=== PATIENT | female | born 1930 | race Hispanic/Latino ===

== ENCOUNTER 2016-07-04 02:36 | Observation (INO) | payer MEDICARE ==
[2016-07-04 02:44] VITALS: BMI 32.5
[2016-07-04] MEDS ORDERED: Nitroglycerin 2% Ointment Foilpak UD TOP STA (02:58)
--- NOTE | 2016-07-04 03:14 | ED PDOC ---
Arrival/HPI - General Chief Complaint: Chest Pain Time Seen by Provider: 07/04/16 02:46 Historian: Patient - History of Present Illness Narrative History of Present Illness (Text): 07/04/16 03:12 Suma Hutchinson is a 86 year old female, whose past medical history includes hypertension, glaucoma, and overactive bladder, presents to the emergency department complaining of right sided chest pain under right breast area since yesterday morning. Denies any difficulty breathing. States she took Aspirin for the pain prior to arrival for appreciable relief. States pain is currently improving. Denies any fever, chills, headache, dizziness, nausea, vomiting, diarrhea, urinary symptoms, back pain, or any other complaints at this time. Time/Duration: 24 hours Symptom Onset: Gradual Symptom Course: Unchanged Severity Level: Mild Activities at Onset: Light Past Medical History - Provider Review Nursing Documentation Reviewed: Yes - Infectious Disease Hx of Infectious Diseases: None - Reproductive Menopause: Yes - Cardiac Hx Hypertension: Yes Hx Pacemaker: No - Neurological Hx Paralysis: No - HEENT Hx Cataracts: Yes Hx Glaucoma: Yes - Hematological/Oncological Hx Blood Transfusions: No Hx Blood Transfusion Reaction: No - Musculoskeletal/Rheumatological Hx Musculoskeletal Disorders: Yes - Genitourinary/Gynecological Other/Comment: Overactive bladder - Psychiatric Hx Substance Use: No - Surgical History Hx Breast Biopsy: Yes (R) Hx Cataract Extraction: Yes Hx Orthopedic Surgery: Yes ([facility] knee surgery) Other/Comment: Hammer toe surgery on both feet. "Surgery for glaucoma" - Anesthesia Hx Anesthesia: Yes Hx Anesthesia Reactions: No Hx Malignant Hyperthermia: No Family/Social History - Physician Review Nursing Documentation Reviewed: Yes Family/Social History: No Known Family HX Smoking Status: Never Smoked Hx Alcohol Use: No Hx Substance Use: No Allergies/Home Meds Allergies/Adverse Reactions: Allergies shellfish derived Allergy (Verified 07/04/16 02:43) RASH Home Medications: Home Meds Medication Instructions Recorded Confirmed Cholecalciferol [Vitamin D 1000 IU] 3,000 iu PO DAILY 07/04/16 07/04/16 Cyanocobalamin [Vitamin B12 1000 1 vial IM Q30D 07/04/16 07/04/16 mcg/ml Inj] Docusate Sodium [Stool Softener] 1 tab PO DAILY 07/04/16 07/04/16 Levothyroxine [Synthroid] 1 tab PO DAILY 07/04/16 07/04/16 Lisinopril [Zestril] 1 tab PO DAILY 07/04/16 07/04/16 Pravastatin Sodium [Pravachol] 1 tab PO DAILY 07/04/16 07/04/16 Solifenacin Succinate [Vesicare] 1 tab PO DAILY 07/04/16 07/04/16 Timolol 0.5% Ophth [Timoptic 0.5% 1 drop BOTHEYES BID 07/04/16 07/04/16 Ophth Soln] Ubidecarenone [Coq-10] 1 cap PO DAILY 07/04/16 07/04/16 Review of Systems - Physician Review All systems were reviewed & negative as marked: Yes - Review of Systems Constitutional: Normal. absent: Fatigue, Fevers Respiratory: Normal. absent: SOB, Cough, Sputum Cardiovascular: Chest Pain (right sided chest pain ). absent: Palpitations Gastrointestinal: Normal. absent: Abdominal Pain, Diarrhea, Nausea, Vomiting Genitourinary Female: Normal. absent: Dysuria, Frequency Neurological: Normal. absent: Headache Psychiatric: Normal Physical Exam Vital Signs Reviewed: Yes Vital Signs Temp Pulse Resp BP Pulse Ox 07/04/16 04:14 61 18 142/73 97 07/04/16 03:20 62 16 172/70 H 98 07/04/16 02:57 98.1 F 60 16 197/86 H 98 Temperature: Afebrile Blood Pressure: Hypertensive Pulse: Regular Respiratory Rate: Normal Appearance: Positive for: Well-Appearing, Non-Toxic, Comfortable Pain Distress: None Mental Status: Positive for: Alert and Oriented X 3 - Systems Exam Head: Present: Atraumatic, Normocephalic Pupils: Present: PERRL Extroacular Muscles: Present: EOMI Conjunctiva: Present: Normal Mouth: Present: Moist Mucous Membranes Respiratory/Chest: Present: Clear to Auscultation, Good Air Exchange. No: Respiratory Distress, Accessory Muscle Use Cardiovascular: Present: Regular Rate and Rhythm, Normal S1, S2. No: Murmurs Abdomen: Present: Normal Bowel Sounds. No: Tenderness, Distention, Peritoneal Signs Upper Extremity: Present: Normal Inspection. No: Cyanosis, Edema Lower Extremity: Present: Normal Inspection. No: Edema Neurological: Present: GCS=15, CN II-XII Intact, Speech Normal, Motor Func Grossly Intact, Normal Sensory Function Skin: Present: Warm, Dry, Normal Color. No: Rashes Psychiatric: Present: Alert, Oriented x 3, Normal Insight, Normal Concentration Medical Decision Making ED Course and Treatment: 07/04/16 03:15 Impression: A 86 year old female who presents to the emergency department complaining of right sided chest pain since yesterday evening. Plan: -- EKG -- Labs, cardiac enzymes -- Chest X-ray -- Nitroglycerin -- Reassess and disposition Progress Notes: 07/04/16 03:16 EKG interpreted by me: Sinus bradycardia @ 58 bpm. 1st degree AV block. no acute changes. Chest X-ray interpreted by me: No acute processes. 07/04/16 04:55 Case discussed in detail with Dr. Beyer who is aware and agrees with the plan to observe patient in telemetry for chest pain. Accepts patient under her service with on cardiology consult. - Lab Interpretations Lab Results: 07/04/16 03:15 07/04/16 03:15 Lab Results 07/04/16 03:15: WBC 9.8, RBC 4.04, Hgb 11.7 L, Hct 35.6 L, MCV 88.1, MCH 29.0, MCHC 32.9, RDW 13.8, Plt Count 250, MPV 10.7 07/04/16 03:15: Sodium 139, Potassium 4.0, Chloride 104, Carbon Dioxide 25, Anion Gap 14, BUN 20, Creatinine 1.0, Est GFR ( Amer) > 60, Est GFR (Non- Af Amer) 52, Random Glucose 118 H, Calcium 9.5, Total Bilirubin 0.8, AST 25, ALT 29, Alkaline Phosphatase 83, Lactate Dehydrogenase 447, Total Creatine Kinase 123, Troponin I < 0.01, Total Protein 7.2, Albumin 3.9, Globulin 3.3, Albumin/Globulin Ratio 1.2 07/04/16 03:15: PT 10.5, INR 0.97, APTT 29.3 - RAD Interpretation Radiology Orders: 07/04/16 02:57 CHEST PORTABLE [RAD] Stat - Medication Orders Current Medication Orders: Discontinued Medications Nitroglycerin (Nitro-Bid 2% Oint) 1 ea TOP ONCE STA Stop: 07/04/16 02:59 Last Admin: 07/04/16 03:07 Dose: 1 ea - Scribe Statement The provider has reviewed the documentation as recorded by the Aureliano Blood Provider Attestation: All medical record entries made by the Melanyibjocelyn were at my direction and personally dictated by me. I have reviewed the chart and agree that the record accurately reflects my personal performance of the history, physical exam, medical decision making, and the department course for this patient. I have also personally directed, reviewed, and agree with the discharge instructions and disposition. Disposition/Present on Arrival - Present on Arrival Any Indicators Present on Arrival: No History of DVT/PE: No History of Uncontrolled Diabetes: No Urinary Catheter: No History of Decub. Ulcer: No History Surgical Site Infection Following: None - Disposition Have Diagnosis and Disposition been Completed?: Yes Diagnosis: Chest pain Disposition: HOSPITALIZED Disposition Time: 04:58 Patient Plan: Observation Patient Problems: Current Active Problems Problem Status Onset Chest pain Acute Condition: GOOD
[2016-07-04 03:45] LABS: ALB/GLOB RATIO 1.2 (1.1-1.8); ALKALINE PHOSPHATASE 83 U/L (38-133); ALT/SGPT 29 U/L (7-56); AST/SGOT 25 U/L (15-39); BILIRUBIN,TOTAL 0.8 mg/dL (0.2-1.3); BLOOD UREA NITROGEN 20 mg/dL (7-21); CALCIUM 9.5 mg/dL (8.4-10.5); CARBON DIOXIDE 25 mmol/L (21-33); CHLORIDE 104 mmol/L (98-107); GFR AFRICAN-AMERICAN > 60; GLUCOSE,RANDOM 118 mg/dL (70-110); SODIUM 139 mmol/L (132-148); TOTAL PROTEIN 7.2 g/dL (5.8-8.3)
[2016-07-04 03:52] LABS: INR 0.97 (0.93-1.08); PARTIAL THROMBOPLASTIN TIME 29.3 Seconds (23.7-30.8)
[2016-07-04 04:02] LABS: HEMATOCRIT 35.6 % (36.0-48.0); MEAN CELL VOLUME 88.1 fL (80.0-105.0); MEAN CORPUSCULAR HGB CONC 32.9 g/dl (31.0-37.0); MEAN PLATELET VOLUME 10.7 fl (7.0-11.0); RED CELL DISTRIBUTION WIDTH 13.8 % (11.5-14.5); WHITE BLOOD COUNT 9.8 [, 10^3/ul] (4.5-11.0)
[2016-07-04 04:48] LABS: TROPONIN I < 0.01 ng/mL
--- NOTE | 2016-07-04 07:57 | RAD ---
HISTORY: chest pain COMPARISON: Comparison is made to 07/31/2014 FINDINGS: LUNGS: No evidence of new infiltrate or consolidation in the lungs. Reticular opacities are seen again more prominent at the perihilar region. PLEURA: No significant pleural effusion identified, no pneumothorax apparent. CARDIOVASCULAR: Normal. OSSEOUS STRUCTURES: No significant abnormalities. VISUALIZED UPPER ABDOMEN: Normal. OTHER FINDINGS: None. IMPRESSION: Perihilar reticular opacities are again noted. No significant interval change since the previous exam.
--- NOTE | 2016-07-04 09:53 | CARD ---
APPROVED REPORT EKG Measurement Heart [id number] <Conclusion> Sinus bradycardia with 1st degree AV block Otherwise normal ECG
--- NOTE | 2016-07-04 11:26 | HP ---
CHIEF COMPLAINT: Right parasternal chest pain for 1 day. HISTORY OF PRESENT ILLNESS: An 86-year-old female with history of hyperlipidemia, hypertension, CAD 1-vessel disease with cardiac cath in 2008, who presented to the Emergency Room with a new onset of right parasternal chest pain which woke her up from sleep. The patient waited for 10-15 minutes, but pain persisted. The patient denied any shortness of breath, heart palpitations , diaphoresis, and she called ambulance, and came to Emergency Room for evaluation. She denied any cough, fever, or chest congestion. PAST MEDICAL HISTORY: Hypertension, hyperlipidemia, cardiac catheterization in 2008 with 1-vessel disease, 60% LAD occlusion treated medically, history of hypothyroidism, history of pernicious anemia, history of osteoarthritis and osteoporosis. CURRENT MEDICATIONS: Levothyroxine, vitamin D, lisinopril 20 mg daily, pravastatin 20 mg daily, vitamin B12 injections monthly, Timolol 0.5 mg eyedrops. ALLERGIES: THE PATIENT HAS KNOWN ALLERGIES TO SHELLFISH. Denies any allergy to medication. PAST SURGICAL HISTORY: Significant for appendectomy, cataract surgery, right breast lumpectomy, right knee replacement, hammertoe surgery. PREVIOUS HOSPITALIZATIONS: Hospitalized for influenza and Clostridium difficile colitis in the past. FAMILY HISTORY: Noncontributory. SOCIAL HISTORY: The patient denies any smoking, alcohol, or drug use. The patient is retired. She is a . She lives with her daughter. She is ambulatory, independent of activity of daily living. REVIEW OF SYSTEMS: She denies any fever, loss of appetite, weight loss. She denies any sore throat, dysphagia, nasal congestion. She denies any neck pain or neck masses. She denies any cough, chest congestion. She denies any shortness of breath, heart palpitation. Complains of right parasternal pain. The patient denies any abdominal pain, epigastric pain, nausea, vomiting, diarrhea, or constipation. She denies any flank pain, dysuria, or hematuria. The patient complains of chronic knee pain and joint stiffness. She denies any headaches, neurological symptoms. The patient denies any anxiety, insomnia, or depression symptoms. PHYSICAL EXAMINATION: VITAL SIGNS: Stable. Temperature is 98.2. Her pulse is 73, blood pressure 149 /77, and respiratory rate 16. Oxygen saturation is 94% on room air. GENERAL: The patient is comfortable in bed, alert, awake, oriented. HEAD: Normocephalic, atraumatic. EYES: Pupils reactive to light. Oral mucosa is moist. NECK: Supple. No neck masses. LUNGS: Clear to auscultation. There is tenderness of the right lower parasternal area and the rib area. No rashes. HEART: Regular rhythm and rate. ABDOMEN: Soft, nontender, nondistended. EXTREMITIES: With no edema, cyanosis, or clubbing. She moves all extremities. NEUROLOGIC: Normal. DIAGNOSTIC TESTS: CBC with WBC 9.8, hemoglobin 11.7, hematocrit 35.6. Her chemistry showed normal electrolytes. Her renal function is normal with BUN 20 , creatinine 1, random glucose 118. Troponin was negative. EKG showed normal sinus rhythm with sinus bradycardia with first-degree AV block. No ST elevation. Chest x-ray was negative for any acute pathology. ASSESSMENT: 1. An 86-year-old female with a history of hypertension, hyperlipidemia, and coronary artery disease 1 vessel, admitted for atypical chest pain, must rule out acute coronary syndrome. 2. Right parasternal pain, most probably musculoskeletal etiology. 3. Hypertension. 4. Hyperlipidemia. PLAN OF TREATMENT: The patient will be admitted for observation. We will repeat troponin. Fluorescent Solution Mixer will be called on consult. The patient will be maintained on aspirin, lisinopril, atorvastatin. Will use Tylenol for pain. Savannah Odonnell MD cc: [id number] TT: 07/04/2016 11:26:22 jn MTDD
[2016-07-04 13:58] LABS: CHOLESTEROL 198 mg/dL (130-200)
[2016-07-04 14:12] LABS: TROPONIN I < 0.01 ng/mL
[2016-07-04] MEDS ORDERED: PRAVASTATIN SODIUM 10 MG PO SCH (21:00)
[2016-07-04] MEDS ORDERED: Home Med 1 UNIT PO SCH (21:30)
[2016-07-05 07:15] LABS: HEMATOCRIT 33.3 % (36.0-48.0); MEAN CELL VOLUME 87.6 fL (80.0-105.0); MEAN CORPUSCULAR HEMOGLOBIN 29.2 pg (25.0-35.0); MEAN CORPUSCULAR HGB CONC 33.3 g/dl (31.0-37.0); MEAN PLATELET VOLUME 10.3 fl (7.0-11.0); RED CELL DISTRIBUTION WIDTH 13.8 % (11.5-14.5); WHITE BLOOD COUNT 8.8 [, 10^3/ul] (4.5-11.0)
[2016-07-05] MEDS ORDERED: Levothyroxine 75 MCG TAB PO SCH (07:30)
[2016-07-05 07:31] LABS: ALB/GLOB RATIO 1.1 (1.1-1.8); ALKALINE PHOSPHATASE 75 U/L (38-133); ALT/SGPT 27 U/L (7-56); AST/SGOT 18 U/L (15-39); BILIRUBIN,TOTAL 0.9 mg/dL (0.2-1.3); BLOOD UREA NITROGEN 17 mg/dL (7-21); CALCIUM 9.1 mg/dL (8.4-10.5); CARBON DIOXIDE 25 mmol/L (21-33); CHLORIDE 106 mmol/L (98-107); GFR AFRICAN-AMERICAN > 60; GLUCOSE,RANDOM 109 mg/dL (70-110); SODIUM 138 mmol/L (132-148); TOTAL PROTEIN 6.4 g/dL (5.8-8.3)
[2016-07-05 08:10] LABS: TROPONIN I < 0.01 ng/mL
[2016-07-05 08:25] VITALS: BP 166/67; RESP 20; TEMP 98.6; O2SAT 96
[2016-07-05] MEDS ORDERED: VESICARE 10 MG PO SCH (09:30)
[2016-07-05 10:50] VITALS: PULSE 75
--- NOTE | 2016-07-05 11:53 | CON ---
DATE: 07/05/2016 REQUESTING PHYSICIAN: Savannah Odonnell MD. REASON FOR CONSULTATION: Chest pain. HISTORY: This is an 86-year-old woman with a history of hypertension who presents to the Emergency R o with complaints of right-sided chest pain. She reportedly has known coronary artery disease afte r having undergone catheterization several years ago. She has been relatively stable on medical ther apy since that time. Yesterday, she developed a sharp pain in the lower aspect of her right inframam soila region. She became concerned and presents to the Emergency Room for evaluation. She has had no further pain, and her cardiac enzymes and electrocardiogram have been unremarkable. She denies any exertional symptoms. She states she is fairly active. She cannot identify any precipitating or reli eving factors for her recent chest pain. She does have a history of hypertension and hyperlipidemia. PAST MEDICAL HISTORY: Notable for the problems mentioned above. She has a history of pernicious ane violetta, osteoarthritis, and hypothyroidism. She also has glaucoma. MEDICATIONS: At home include pravastatin 20 mg daily, lisinopril 20 mg daily, levothyroxine, and Inocencio olol eyedrops, as well as monthly B12 injections. ALLERGIES: No medications. SURGICAL HISTORY: She has undergone a prior appendectomy, bilateral knee replacements, cataract surg janel, and right breast lumpectomy. SOCIAL HISTORY: She does not smoke or drink. She is a , and she is retired. She lives with he r daughter. FAMILY HISTORY: Both parents are from age-related illness. REVIEW OF SYSTEMS: A 10-point review of systems is otherwise unremarkable. PHYSICAL EXAMINATION: GENERAL: She is an overweight elderly woman. VITAL SIGNS: Blood pressure is 160/70 with a pulse of 66 and sinus. Respirations are 14. She is af ebrile. HEENT: Normocephalic, atraumatic. NECK: Supple. No JVD noted. CHEST: Clear to auscultation and percussion. HEART: PMI in normal position. No pathologic murmur or gallops noted. ABDOMEN: Soft, nontender, normoactive bowel sounds. EXTREMITIES: No clubbing, cyanosis, or edema. SKIN: Warm and dry. PSYCHIATRIC: Normal mood and affect. NEUROLOGIC: Alert and oriented x 3. No gross motor or sensory deficits appreciable. DIAGNOSTIC DATA: White count is 8.8, hemoglobin and hematocrit 11.1 and 33.3 with a platelet count o f 224,000. PT and PTT are normal. Potassium 4.0. BUN and creatinine are 17 and 0.9. Three sets of cardiac enzymes are negative. Cholesterol 198 with an LDL 108, HDL 41, and triglycerides 180. Electrocardiogram reveals sinus rhythm with nonspecific ST-T abnormalities. Chest x-ray reveals a normal cardiac silhouette with clear lung wheeler. IMPRESSION: 1. Chest pain appears atypical for coronary artery disease. Symptoms appear more likely musculoskel etal or neuropathic in nature. 2. Known coronary artery disease, clinically stable at present. 3. The rest of the problems as noted. RECOMMENDATIONS: From a cardiac standpoint, she appears stable for discharge home. She was reassure d that her pain is not likely cardiac. Outpatient followup can be arranged as needed. Thank you for this consultation. Oni King MD cc: [id number] TT: 07/05/2016 11:52:41 Confirmation # [id number] Dictation # [id number] willow
--- NOTE | 2016-07-05 21:42 | DS ---
SUBJECTIVE: The patient was admitted for atypical chest pain yesterday. The patient is feeling much better today. She denies any chest pain, shortness of breath, heart palpitation. PHYSICAL EXAMINATION: VITAL SIGNS: Today, stable. Temperature 98.6, pulse 66, blood pressure 166/67 and respiratory rate 20. GENERAL: The patient is very comfortable in bed, in no acute distress. HEENT: Head is normocephalic, atraumatic. Oral mucosa is moist. NECK: Supple. No JVD. LUNGS: Clear to auscultation. HEART: Regular rhythm and rate. No chest wall tenderness. ABDOMEN: Soft, nontender, nondistended. EXTREMITIES: With no edema, cyanosis or clubbing. DIAGNOSTIC TESTS: Over the last 24 hours: Troponin level negative. CBC stable with WBC 8.8, hemoglobin 11.1. Chemistry within normal limits. Cardiology evaluation showed no acute coronary event. ASSESSMENT: 1. Atypical chest pain, most probably musculoskeletal etiology, clinically improved. 2. Hypertension. 3. Hyperlipidemia. 4. Hypothyroidism. PLAN OF TREATMENT: The patient will be discharged home today. Continue heart healthy diet. The patient will resume her chronic medications, levothyroxine, lisinopril and pravastatin. The patient will be reevaluated in the office next week. She will be also referred to adult live in caregiver for evaluation outpatient. Savannah Odonnell MD cc: [id number] TT: 07/05/2016 21:40:47 ln MTDD
== END 2016-07-05 11:14 | disposition home or self-care (01) ==
LOC: ED 02:36 → ERH 04:54 → 3RNO 11:06
PROVIDERS: ADMIT Family Medicine; ATTEND Family Medicine
DX: R07.89 Other chest pain (principal); I10 Essential (primary) hypertension; E78.5 Hyperlipidemia, unspecified; E03.9 Hypothyroidism, unspecified; M19.90 Unspecified osteoarthritis, unspecified site; H40.9 Unspecified glaucoma; D51.0 Vitamin B12 deficiency anemia due to intrinsic factor deficiency; M81.0 Age-related osteoporosis without current pathological fracture; I25.10 Atherosclerotic heart disease of native coronary artery without angina pectoris; Z96.653 Presence of artificial knee joint, bilateral
CPT/HCPCS: 36415; 71010; 80053; 80061; 82550; 83615; 84484; 85027; 85610; 85730; 93005; 99285; G0378

== ENCOUNTER 2018-04-22 10:44 | Outpatient (CLI) | payer MEDICARE | END 2018-04-22 10:45 | disposition home or self-care (01) | LOC: HLTHCOUN 10:44 | DX: Z93.1 Gastrostomy status (principal); I69.391 Dysphagia following cerebral infarction; Z71.3 Dietary counseling and surveillance ==

== ENCOUNTER 2018-05-01 01:51 | Observation (INO) | payer MEDICARE ==
--- NOTE | 2018-05-01 02:16 | ED PDOC ---
Arrival/HPI - General Time Seen by Provider: 05/01/18 01:57 Historian: Patient, Family (Daughter) - History of Present Illness Narrative History of Present Illness (Text): 05/01/18 02:05 Suma Hutchinson is an 87 year old old female, with past medical history of hypertension, hyperlipidemia, hypothyroidism, and CVA, who presents to the Emergency department brought in by EMS accompanied by daughter complaining of chest pain. Patient states she began experiencing chest pain is localized under her right breast. Patients states pain has improved after receiving nitroglycerin in the field. Patient denies any fever, chills, shortness of breath, nausea, vomiting, diarrhea, urinary symptoms, back pain, neck pain, headache, dizziness, or any other complaints. Time/Duration: 24 hours Symptom Onset: Gradual Symptom Course: Improving Activities at Onset: Significant Context: Home Past Medical History - Provider Review Nursing Documentation Reviewed: Yes - Infectious Disease Hx of Infectious Diseases: None - Cardiac Hx Hyperlipemia: Yes Hx Hypertension: Yes Hx Pacemaker: No - Neurological HX Cerebrovascular Accident: Yes Hx Paralysis: No - HEENT Hx Cataracts: Yes Hx Glaucoma: Yes - Endocrine/Metabolic Hx Hypothyroidism: Yes - Hematological/Oncological Hx Blood Transfusions: No Hx Blood Transfusion Reaction: No - Musculoskeletal/Rheumatological Hx Musculoskeletal Disorders: Yes Hx Falls: No - Gastrointestinal Other/Comment: PEG Tube - Genitourinary/Gynecological Other/Comment: Overactive bladder - Psychiatric Hx Substance Use: No - Surgical History Hx Orthopedic Surgery: Yes ([facility] knee surgery) Other/Comment: Hammer toe surgery on both feet. "Surgery for glaucoma" - Anesthesia Hx Anesthesia: Yes Hx Anesthesia Reactions: No Hx Malignant Hyperthermia: No Family/Social History - Physician Review Nursing Documentation Reviewed: Yes Family/Social History: Unknown Family HX Smoking Status: Unknown If Ever Smoked Hx Alcohol Use: No Hx Substance Use: No Allergies/Home Meds Allergies/Adverse Reactions: Allergies shellfish derived Allergy (Verified 05/01/18 01:57) RASH Home Medications: Home Meds Medication Instructions Recorded Confirmed Cholecalciferol [Vitamin D 1000 IU] 3,000 iu PO DAILY 07/04/16 05/01/18 Cyanocobalamin [Vitamin B12 1000 1 vial IM Q30D 07/04/16 05/01/18 mcg/ml Inj] Docusate Sodium [Stool Softener] 1 tab PO DAILY 07/04/16 05/01/18 Levothyroxine [Synthroid] 1 tab PO DAILY 07/04/16 05/01/18 Lisinopril [Zestril] 15 mg PO DAILY 07/04/16 05/01/18 Pravastatin Sodium [Pravachol] 1 tab PO DAILY 07/04/16 05/01/18 Timolol 0.5% Ophth [Timoptic 0.5% 1 drop BOTHEYES BID 07/04/16 05/01/18 Ophth Soln] Ubidecarenone [Coq-10] 1 cap PO DAILY 07/04/16 05/01/18 Review of Systems - Physician Review All systems were reviewed & negative as marked: Yes - Review of Systems Constitutional: Normal Eyes: Normal ENT: Normal Respiratory: Normal. absent: SOB, Cough Cardiovascular: Chest Pain Gastrointestinal: Normal. absent: Abdominal Pain, Diarrhea, Nausea, Vomiting Genitourinary Female: Normal. absent: Frequency, Hematuria Musculoskeletal: Normal. absent: Back Pain, Neck Pain Skin: Normal. absent: Rash Neurological: Normal. absent: Headache, Dizziness Endocrine: Normal Hemo/Lymphatic: Normal Psychiatric: Normal Physical Exam Vital Signs Reviewed: Yes Temperature: Afebrile Blood Pressure: Normal Pulse: Regular Respiratory Rate: Normal Appearance: Positive for: Well-Appearing, Non-Toxic, Comfortable Pain Distress: None Mental Status: Positive for: Alert and Oriented X 3 - Systems Exam Head: Present: Atraumatic, Normocephalic Pupils: Present: PERRL Extroacular Muscles: Present: EOMI Conjunctiva: Present: Normal Mouth: Present: Moist Mucous Membranes Neck: Present: Normal Range of Motion. No: Meningeal Signs, MIDLINE TENDERNESS, Paraspinal Tenderness Respiratory/Chest: Present: Clear to Auscultation, Good Air Exchange. No: Respiratory Distress, Accessory Muscle Use Cardiovascular: Present: Regular Rate and Rhythm, Normal S1, S2. No: Murmurs Abdomen: No: Tenderness, Distention, Peritoneal Signs Back: Present: Normal Inspection. No: CVA Tenderness, Midline Tenderness, Paraspinal Tenderness Upper Extremity: Present: Normal Inspection. No: Cyanosis, Edema Lower Extremity: Present: Normal Inspection. No: Edema Neurological: Present: GCS=15, CN II-XII Intact, Speech Normal Skin: Present: Warm, Dry, Normal Color. No: Rashes Psychiatric: Present: Alert, Oriented x 3, Normal Insight, Normal Concentration Medical Decision Making ED Course and Treatment: 05/01/18 02:58 Impression: Suma Hutchinson a 87 year old old female who presents to the Emergency department for pain under the right breast. Plan: -- EKG -- Labs -- CXR -- Reassess and disposition Progress Notes; Reviewed EKG, NSR at 62 bpm. 1st degree AV block. Non-specific ST/T wave changes. 05/01/18 04:24 Chest X-ray reviewed, shows no acute processes. 05/01/18 05:20 Case discussed with medical insurance collector basket person, who is aware and agrees with plan. Case discussed with Dr. Beard, who is aware and agrees with plan. Pt will go to remote telemetry observation for chest pain under the hospitalist service. - EKG Interpretation Interpreted by ED Physician: Yes Type: 12 lead EKG - Scribe Statement Latrice Kellogg training under Francisca Hernandez Provider Scribe Attestation: All medical record entries made by the Scribe were at my direction and personally dictated by me. I have reviewed the chart and agree that the record accurately reflects my personal performance of the history, physical exam, medical decision making, and the department course for this patient. I have also personally directed, reviewed, and agree with the discharge instructions and disposition. Disposition/Present on Arrival - Present on Arrival Any Indicators Present on Arrival: No History of DVT/PE: No History of Uncontrolled Diabetes: No Urinary Catheter: No History of Decub. Ulcer: No History Surgical Site Infection Following: None - Disposition Have Diagnosis and Disposition been Completed?: Yes Diagnosis: Chest pain Disposition: HOSPITALIZED Disposition Time: 04:23 Patient Plan: Observation Patient Problems: Current Active Problems Problem Status Onset Chest pain Acute Condition: STABLE
[2018-05-01 02:47] LABS: HEMOGLOBIN 10.1 g/dL (12.0-16.0); MEAN CELL VOLUME 90.4 fl (80.0-105.0); MEAN CORPUSCULAR HEMOGLOBIN 29.4 pg (25.0-35.0); MEAN CORPUSCULAR HGB CONC 32.5 g/dl (31.0-37.0); MEAN PLATELET VOLUME 10.9 fl (7.0-11.0); RBC 3.44 10^6/uL (3.5-6.1); RED CELL DISTRIBUTION WIDTH 13.5 % (11.5-14.5); WHITE BLOOD COUNT 10.1 10^3/uL (4.5-11.0)
[2018-05-01 02:51] LABS: INR 1.02; PARTIAL THROMBOPLASTIN TIME 35.7 Seconds (26.9-38.3); PROTHROMBIN TIME 11.3 SECONDS (9.4-12.5)
[2018-05-01 02:54] LABS: ALB/GLOB RATIO 1.1 (1.1-1.8); ALBUMIN 3.6 g/dL (3.0-4.8); ALT/SGPT 12 U/L (7-56); AST/SGOT 26 U/L (14-36); BLOOD UREA NITROGEN 22 mg/dL (7-21); CALCIUM 9.3 mg/dL (8.4-10.5); GFR NON-AFRICAN AMERICAN > 60
[2018-05-01 03:06] LABS: TROPONIN I < 0.01 ng/mL
--- NOTE | 2018-05-01 04:48 | CP.PCM.HP ---
<Velasquez Rubi - Last Filed: 05/01/18 05:47> History of Present Illness - History of Present Illness History of Present Illness: PGY1 Hospitalist History and Physical Exam Note for Dr. Beard CC: Pain under right breast Suma Hutchinson is an 87 year old old female with PMH of HTN, HLD, hypothyroidism, and CVA who presents to [facility] ED brought in by EMS accompanied by daughter complaining of pain under right breast since 11PM. Patient states she began experiencing pain localized under her right breast after attempting to open a window. Patient states the pain is sharp in quality and 9/10 in severity and non-radiating. Patient states pain has improved after receiving nitroglycerin in the field. ROS otherwise unremarkable for fever, chills, shortness of breath, nausea, vomiting, diarrhea, dysuria, abdominal pain, back pain, neck pain, headache, dizziness, and/or numbness/tingling in extremities. PMH: HTN, HLD, hypothyroidism, and CVA, glaucoma, PSH: Bilateral knee surgery, s/p breast surgery (removed mass) Family Hx: Social Hx: Denies ETOH, denies tobacco, denies substance abuse Medications: vitamin D 3000iu po daily vitamin B12 1 vial IM Q30D Docusate sodium 1 tab po daily Levothyroxine 1 tab PO daily Zestril 15mg po daily Timolol 0.5% opth 1 drop both eyes BID ubidecarenone 1 cap po daily Allergies: shellfish (causes rash) PMD: Dr. Beyer Present on Admission - Present on Admission Any Indicators Present on Admission: No History of DVT/PE: No History of Uncontrolled Diabetes: No Urinary Catheter: No Decubitus Ulcer Present: No Review of Systems - Review of Systems All systems: reviewed and no additional remarkable complaints except (as per HPI) Past Patient History - Infectious Disease Hx of Infectious Diseases: None - Past Social History Smoking Status: Unknown If Ever Smoked - CARDIAC Hx Hypertension: Yes Hx Pacemaker: No - NEUROLOGICAL HX Cerebrovascular Accident: Yes Hx Paralysis: No - HEENT Hx Cataracts: Yes Hx Glaucoma: Yes - ENDOCRINE/METABOLIC Hx Hypothyroidism: Yes - HEMATOLOGICAL/ONCOLOGICAL Hx Blood Transfusions: No Hx Blood Transfusion Reaction: No - MUSCULOSKELETAL/RHEUMATOLOGICAL Hx Musculoskeletal Disorders: Yes Hx Falls: No - GASTROINTESTINAL Other/Comment: PEG Tube - GENITOURINARY/GYNECOLOGICAL Other/Comment: Overactive bladder - PSYCHIATRIC Hx Substance Use: No - SURGICAL HISTORY Hx Orthopedic Surgery: Yes ([facility] knee surgery) Other/Comment: Hammer toe surgery on both feet. "Surgery for glaucoma" - ANESTHESIA Hx Anesthesia: Yes Hx Anesthesia Reactions: No Hx Malignant Hyperthermia: No Meds Allergies/Adverse Reactions: Allergies Allergy/AdvReac Type Severity Reaction Status Date / Time shellfish derived Allergy RASH Verified 05/01/18 01:57 Physical Exam - Head Exam Head Exam: NORMAL INSPECTION, NORMOCEPHALIC - Eye Exam Eye Exam: EOMI, Normal appearance, PERRL. absent: Conjunctival injection, Nystagmus, Periorbital swelling, Periorbital tenderness, Scleral icterus Pupil Exam: NORMAL ACCOMODATION. absent: Fixed, Irregular, Unequal - ENT Exam ENT Exam: Mucous Membranes Moist, Normal Exam - Neck Exam Neck exam: Positive for: Normal Inspection - Respiratory Exam Respiratory Exam: Clear to Auscultation Bilateral, NORMAL BREATHING PATTERN. absent: Accessory Muscle Use, Chest Wall Tenderness, Decreased Breath Sounds, Rales, Rhonchi, Wheezes, Respiratory Distress, Stridor - Cardiovascular Exam Cardiovascular Exam: REGULAR RHYTHM, +S1, +S2. absent: Bradycardia, Tachycardia Additional comments: breast exam: Right breast with faint well-healed hypopigmented scar uner right nipple No tenderness to palpation of inferolateral right breast - GI/Abdominal Exam GI & Abdominal Exam: Normal Bowel Sounds, Soft, Tenderness. absent: Diminished Bowel Sounds, Firm, Guarding, Hernia Additional comments: PEG site clean, dry, and intact - Extremities Exam Extremities exam: Positive for: normal inspection. Negative for: pedal edema, tenderness - Back Exam Back exam: NORMAL INSPECTION - Neurological Exam Neurological exam: Alert, CN II-XII Intact, Oriented x3 - Psychiatric Exam Psychiatric exam: Normal Affect, Normal Mood - Skin Skin Exam: Dry, Intact, Normal Color, Warm Results - Vital Signs Recent Vital Signs: Last Vital Signs Temp 98.2 F 05/01/18 02:05 Pulse 67 05/01/18 03:45 Resp 18 05/01/18 03:45 BP 121/59 L 05/01/18 03:45 Pulse Ox 96 05/01/18 03:45 - Labs Result Diagrams: 05/01/18 02:25 05/01/18 02:25 Labs: Laboratory Results - last 24 hr 03/08/1405/01/18 05/01/18 02:25 02:25 02:25 WBC 10.1 RBC 3.44 L Hgb 10.1 L Hct 31.1 L MCV 90.4 MCH 29.4 MCHC 32.5 RDW 13.5 Plt Count 242 MPV 10.9 PT 11.3 INR 1.02 APTT 35.7 Sodium 136 Potassium 4.2 Chloride 105 Carbon Dioxide 26 Anion Gap 9 L BUN 22 H Creatinine 0.7 Est GFR ( Amer) > 60 Est GFR (Non-Af Amer) > 60 Random Glucose 149 H Calcium 9.3 Total Bilirubin 0.3 AST 26 ALT 12 Alkaline Phosphatase 85 Lactate Dehydrogenase 392 Total Creatine Kinase 87 Troponin I < 0.01 Total Protein 6.9 Albumin 3.6 Globulin 3.2 Albumin/Globulin Ratio 1.1 Assessment & Plan - Assessment and Plan (Free Text) Assessment: Suma Hutchinson is an 87 year old old female with PMH of HTN, HLD, hypothyroidism, and CVA who presents to [facility] ED brought in by EMS accompanied by daughter complaining of pain under right breast since 11PM. Chest pain, ACS Rule-Out - Troponin negative x1 - EKG: NSR at 62 bpm. 1st degree AV block. Non-specific ST/T wave changes - CXR: no acute disease (follow-up on official read) - Loading dose ASA given in ED - Continue ASA 81mg PO daily - F/U troponin Q6 - F/U EKG Q6 - F/U TSH - Cardiology consulted (Dr. King) recommendations appreciated - Monitor History of CVA - PEG tube in place (clean, dry, intact) - Continue home pravastatin History of Hypothyroidism - F/U TSH - Continue home med in AM. Day team to confirm dose with pharmacy of levothryroxin History of Hyperlipidemia - F/U Lipid panel - Continue home pravastatin History of HTN - Continue home zestril - Monitor PPx: - GI: not indicated - DVT: Lovenox SC Discussed with Dr. Chirag Rubi PGY1 <Vandana Beard - Last Filed: 05/01/18 06:23> Results - Vital Signs Recent Vital Signs: Last Vital Signs Temp 97.9 F 05/01/18 05:33 Pulse 73 05/01/18 05:33 Resp 19 03/06/19 05:33 BP 128/61 05/01/18 05:33 Pulse Ox 96 05/01/18 05:33 - Labs Result Diagrams: 05/01/18 02:25 05/01/18 02:25 Labs: Laboratory Results - last 24 hr 05/01/18 05/01/18 05/01/18 02:25 02:25 02:25 WBC 10.1 RBC 3.44 L Hgb 10.1 L Hct 31.1 L MCV 90.4 MCH 29.4 MCHC 32.5 RDW 13.5 Plt Count 242 MPV 10.9 PT 11.3 INR 1.02 APTT 35.7 Sodium 136 Potassium 4.2 Chloride 105 Carbon Dioxide 26 Anion Gap 9 L BUN 22 H Creatinine 0.7 Est GFR ( Amer) > 60 Est GFR (Non-Af Amer) > 60 Random Glucose 149 H Calcium 9.3 Total Bilirubin 0.3 AST 26 ALT 12 Alkaline Phosphatase 85 Lactate Dehydrogenase 392 Total Creatine Kinase 87 Troponin I < 0.01 Total Protein 6.9 Albumin 3.6 Globulin 3.2 Albumin/Globulin Ratio 1.1 Attending/Attestation - Attestation I have personally seen and examined this patient.: Yes I have fully participated in the care of the patient.: Yes I have reviewed all pertinent clinical information: Yes Notes (Text): 05/01/18 06:22 seen and examined. Discussed with resident. Needs anemia W/U as O/P. Agree with resident note. Exam significant for Holosystolic murmur and obesity.
[2018-05-01] MEDS ORDERED: Levothyroxine 75 MCG TAB PO SCH (06:00)
[2018-05-01 08:34] LABS: HDL CHOLESTEROL 33 mg/dL (29-60)
[2018-05-01 08:56] LABS: LDL CHOLESTEROL 80 mg/dL (0-129)
--- NOTE | 2018-05-01 09:06 | RAD ---
Date of service: 05/01/2018 HISTORY: chest pain COMPARISON: 07/04/2016 FINDINGS: LUNGS: No active pulmonary disease. PLEURA: No significant pleural effusion identified, no pneumothorax apparent. CARDIOVASCULAR: No aortic atherosclerotic calcification present. Normal cardiac size. No pulmonary vascular congestion. OSSEOUS STRUCTURES: No significant abnormalities. VISUALIZED UPPER ABDOMEN: Normal. OTHER FINDINGS: None. IMPRESSION: No active disease.
[2018-05-01 09:25] VITALS: BMI 33.0
--- NOTE | 2018-05-01 09:39 | CARD ---
APPROVED REPORT Date of service: 05/01/2018 EKG Measurement Heart [id number] <Conclusion> Sinus rhythm with 1st degree AV block Otherwise normal ECG
[2018-05-01] MEDS ORDERED: UBIDECARENONE PO SCH (10:00)
[2018-05-01] MEDS ORDERED: Enoxaparin 40 mg Syringe SC SCH (10:00)
[2018-05-01] MEDS ORDERED: Cholecalciferol 1,000 INTLU TAB PO SCH (10:00)
[2018-05-01] MEDS ORDERED: Home Med 1 UNIT OU SCH (11:00)
[2018-05-01 11:11] VITALS: RESP 18
[2018-05-01 12:37] VITALS: BP 135/68; PULSE 63; TEMP 98.2
--- NOTE | 2018-05-01 13:24 | CON ---
DATE: 05/01/2018 REQUESTING PHYSICIAN: Dr. Galloway. REASON FOR CONSULTATION: Chest pain. HISTORY: This is an 87-year-old woman well-known to us with a history of prior cerebrovascular accident as well as a history of hypertension, who presented to the emergency room complaining of a right-sided chest pain. She has described this as a sharp pain in the right inframammary region. She feels she has some relief with sublingual nitroglycerin when emergency squad arrived. She has had undergone prior catheterization a number of years ago and was told that she had mild coronary disease at that time. She was admitted several years ago with similar symptoms and an outpatient stress test was unremarkable. She is currently chest pain-free. Cardiac enzymes are negative. PAST MEDICAL HISTORY: Past history is notable for the problems mentioned above. She has a history of hypothyroidism, osteoarthritis, glaucoma, pernicious anemia, and prior cerebrovascular accident. She also had prior bilateral knee replacements, cataract surgery, right breast lumpectomy, prior appendectomy, and cerebrovascular accident last year, which resulted in significant dysphasia. She has a gastrostomy tube in place. MEDICATIONS: Her current medications include Pravachol, Synthroid, Zestril, and eyedrops. ALLERGIES: SHE HAS HAD REACTIONS TO SHELLFISH IN THE PAST. SOCIAL HISTORY: She is and lives with her daughter. She does not smoke or drink. FAMILY HISTORY: Both parents from age-related illness. REVIEW OF SYSTEMS: A 10-point review of systems is unremarkable. PHYSICAL EXAMINATION: GENERAL: She is an overweight, very elderly woman. VITAL SIGNS: Blood pressure is 128/60 with a pulse of 70 and sinus, respirations are 16. She is afebrile. HEENT: Normocephalic and atraumatic. NECK: Supple. No JVD noted. CHEST: Few scattered rhonchi heard. HEART: PMI displaced laterally. No pathological gallops noted. ABDOMEN: Soft, mildly obese, nontender, normoactive bowel sounds. EXTREMITIES: No edema. SKIN: Warm and dry. PSYCHIATRIC: Normal mood and affect. NEUROLOGIC: Alert and oriented x3. No gross motor deficits are noted. She does have pinpoint tenderness in the inframammary region upon palpation. DIAGNOSTIC DATA: White count is 10.1, hemoglobin and hematocrit 10.1 and 31.1 with platelet count of 242,000. PT/PTT are normal. Potassium 4.2, BUN and creatinine 22 and 0.7. Two sets of cardiac enzymes are negative. Cholesterol is 150 with an LDL of 80, HDL 33. Electrocardiogram reveals sinus rhythm with nonspecific ST-T abnormalities. Chest x-ray reveals normal cardiac silhouette with clear lung wheeler. IMPRESSION: 1. Chest pain, atypical, appears most consistent with a musculoskeletal cause, doubt cardiac ischemia. 2. Rest of problems as noted. RECOMMENDATIONS: From a cardiac standpoint, she appears stable for discharge home at this time. Analgesic therapy was advised as needed. She was reassured that the pain is noncardiac in nature. Thank you for this consultation. We will be happy to continue to provide ongoing followup as needed. Oni King MD BENIGNO
--- NOTE | 2018-05-01 15:03 | CP.PCM.DIS ---
<Leelee Deng L - Last Filed: 05/01/18 15:05> Provider - Provider Date of Admission: 05/01/18 04:24 Attending physician: Janelle Galloway MD Primary care physician: Savannah Beyer MD Consults: 05/01/18 05:23 Physician Consult Routine Comment: Consulting Provider: Oni King Consulting Physician: Oni King Reason for Consult: ACS rule-out Time Spent in preparation of Discharge (in minutes): 35 Diagnosis - Discharge Diagnosis (1) Atypical chest pain Status: Resolved Hospital Course - Lab Results Lab Results: Most Recent Lab Values WBC 10.1 10^3/uL (4.5-11.0) 05/01/18 02:25 RBC 3.44 10^6/uL (3.5-6.1) L 05/01/18 02:25 Hgb 10.1 g/dL (12.0-16.0) L 05/01/18 02:25 Hct 31.1 % (36.0-48.0) L 05/01/18 02:25 MCV 90.4 fl (80.0-105.0) 05/01/18 02:25 MCH 29.4 pg (25.0-35.0) 05/01/18 02:25 MCHC 32.5 g/dl (31.0-37.0) 05/01/18 02:25 RDW 13.5 % (11.5-14.5) 05/01/18 02:25 Plt Count 242 10^3/uL (120.0-450.0) 05/01/18 02:25 MPV 10.9 fl (7.0-11.0) 05/01/18 02:25 PT 11.3 SECONDS (9.4-12.5) 05/01/18 02:25 INR 1.02 05/01/18 02:25 APTT 35.7 Seconds (26.9-38.3) 05/01/18 02:25 Sodium 136 mmol/L (132-148) 05/01/18 02:25 Potassium 4.2 mmol/L (3.6-5.0) 05/01/18 02:25 Chloride 105 mmol/L (98-107) 05/01/18 02:25 Carbon Dioxide 26 mmol/L (21-33) 05/01/18 02:25 Anion Gap 9 (10-20) L 05/01/18 02:25 BUN 22 mg/dL (7-21) H 05/01/18 02:25 Creatinine 0.7 mg/dl (0.7-1.2) 05/01/18 02:25 Est GFR ( Amer) > 60 05/01/18 02:25 Est GFR (Non-Af Amer) > 60 05/01/18 02:25 Random Glucose 149 mg/dL (70-110) H 05/01/18 02:25 Calcium 9.3 mg/dL (8.4-10.5) 05/01/18 02:25 Total Bilirubin 0.3 mg/dL (0.2-1.3) 05/01/18 02:25 AST 26 U/L (14-36) 05/01/18 02:25 ALT 12 U/L (7-56) 05/01/18 02:25 Alkaline Phosphatase 85 U/L (38-126) 05/01/18 02:25 Lactate Dehydrogenase 392 U/L (333-699) 05/01/18 02:25 Total Creatine Kinase 87 U/L (35-230) 05/01/18 02:25 Troponin I < 0.01 ng/mL 05/01/18 13:40 Total Protein 6.9 g/dL (5.8-8.3) 05/01/18 02:25 Albumin 3.6 g/dL (3.0-4.8) 05/01/18 02:25 Globulin 3.2 gm/dL 05/01/18 02:25 Albumin/Globulin Ratio 1.1 (1.1-1.8) 05/01/18 02:25 Triglycerides 110 mg/dL (35-160) 05/01/18 08:00 Cholesterol 158 mg/dL (130-200) 05/01/18 08:00 LDL Cholesterol Direct 80 mg/dL (0-129) 05/01/18 08:00 HDL Cholesterol 33 mg/dL (29-60) 05/01/18 08:00 TSH 3rd Generation 0.89 mIU/mL (0.46-4.68) 05/01/18 10:30 - Hospital Course Hospital Course: On admission: Suma Hutchinson is an 87 year old old female with PMH of HTN, HLD, hypothyroidism, and CVA who presents to [facility] ED brought in by EMS accompanied by daughter complaining of pain under right breast since 11PM. Patient states she began experiencing pain localized under her right breast after attempting to open a window. Patient states the pain is sharp in quality and 9/10 in severity and non-radiating. Patient states pain has improved after receiving nitroglycerin in the field. ROS otherwise unremarkable for fever, chills, shortness of breath, nausea, vomiting, diarrhea, dysuria, abdominal pain, back p ain, neck pain, headache, dizziness, and/or numbness/tingling in extremities. During hospital stay: Patient was given loading dose of aspirin and admitted. EKG was unremarkable compared to prior. Troponins were negative x3. Patient was evaluated by cardiology, who recommended patient stable for discharge. Patient was also evaluated by physical therapy. Patient was optimized for discharge and instructed to follow up with primary medical doctor. All questions and concerns were addressed. Discharge Exam - Additional Findings Additional findings: - Head Exam Head Exam: ATRAUMATIC, NORMOCEPHALIC - Eye Exam Eye Exam: EOMI, Normal appearance, PERRL - ENT Exam ENT Exam: Mucous Membranes Moist, Normal Exam - Neck Exam Neck exam: Positive for: Normal Inspection - Respiratory Exam Respiratory Exam: Clear to Auscultation Bilateral, NORMAL BREATHING PATTERN. absent: Accessory Muscle Use, Chest Wall Tenderness, Decreased Breath Sounds, Rales, Rhonchi, Wheezes - Cardiovascular Exam Cardiovascular Exam: REGULAR RHYTHM, +S1, +S2. absent: Bradycardia, Tachycardia Additional comments: pain reproducible with palpation in right anterior ribs - GI/Abdominal Exam GI & Abdominal Exam: Normal Bowel Sounds, Soft, Tenderness. absent: Diminished Bowel Sounds, Firm, Guarding, Hernia Additional comments: PEG site clean, dry, and intact - Extremities Exam Extremities exam: Positive for: normal inspection. Negative for: pedal edema, tenderness - Neurological Exam Neurological exam: Alert, CN II-XII Intact, Oriented x3 - Psychiatric Exam Psychiatric exam: Normal Affect, Normal Mood - Skin Skin Exam: Dry, Intact, Normal Color, Warm Discharge Plan - Follow Up Plan Condition: STABLE Disposition: HOME/ ROUTINE Instructions: Chest Pain, Soft Diet, Aspirin Additional Instructions: Please follow up with Dr. Beyer in 3-5 days after discharge. Follow up with your Decorating Equipment Setter as outpatient. Resume your home medications. Resume speech therapy. Please return to ED if the symptoms return. Diet: Soft diet for breakfast and lunch PEG tube feeding at 6pm and 10 pm Patient states she is up to date with regards to the flu and the pneumocccal vaccines. Referrals: Savannah Odonnell MD [Primary Care Provider] - <Janelle Galloway - Last Filed: 05/01/18 16:12> Provider - Provider Date of Admission: 05/01/18 04:24 Attending physician: Janelle Galloway MD Primary care physician: Savannah Beyer MD Consults: 05/01/18 05:23 Physician Consult Routine Comment: Consulting Provider: Oni King Consulting Physician: Oni King Reason for Consult: ACS rule-out Hospital Course - Lab Results Lab Results: Most Recent Lab Values WBC 10.1 10^3/uL (4.5-11.0) 05/01/18 02:25 RBC 3.44 10^6/uL (3.5-6.1) L 05/01/18 02:25 Hgb 10.1 g/dL (12.0-16.0) L 05/01/18 02:25 Hct 31.1 % (36.0-48.0) L 05/01/18 02:25 MCV 90.4 fl (80.0-105.0) 05/01/18 02:25 MCH 29.4 pg (25.0-35.0) 05/01/18 02:25 MCHC 32.5 g/dl (31.0-37.0) 05/01/18 02:25 RDW 13.5 % (11.5-14.5) 05/01/18 02:25 Plt Count 242 10^3/uL (120.0-450.0) 05/01/18 02:25 MPV 10.9 fl (7.0-11.0) 05/01/18 02:25 PT 11.3 SECONDS (9.4-12.5) 05/01/18 02:25 INR 1.02 05/01/18 02:25 APTT 35.7 Seconds (26.9-38.3) 05/01/18 02:25 Sodium 136 mmol/L (132-148) 05/01/18 02:25 Potassium 4.2 mmol/L (3.6-5.0) 05/01/18 02:25 Chloride 105 mmol/L (98-107) 05/01/18 02:25 Carbon Dioxide 26 mmol/L (21-33) 05/01/18 02:25 Anion Gap 9 (10-20) L 05/01/18 02:25 BUN 22 mg/dL (7-21) H 05/01/18 02:25 Creatinine 0.7 mg/dl (0.7-1.2) 05/01/18 02:25 Est GFR ( Amer) > 60 05/01/18 02:25 Est GFR (Non-Af Amer) > 60 05/01/18 02:25 Random Glucose 149 mg/dL (70-110) H 05/01/18 02:25 Calcium 9.3 mg/dL (8.4-10.5) 05/01/18 02:25 Total Bilirubin 0.3 mg/dL (0.2-1.3) 05/01/18 02:25 AST 26 U/L (14-36) 05/01/18 02:25 ALT 12 U/L (7-56) 05/01/18 02:25 Alkaline Phosphatase 85 U/L (38-126) 05/01/18 02:25 Lactate Dehydrogenase 392 U/L (333-699) 05/01/18 02:25 Total Creatine Kinase 87 U/L (35-230) 05/01/18 02:25 Troponin I < 0.01 ng/mL 05/01/18 13:40 Total Protein 6.9 g/dL (5.8-8.3) 05/01/18 02:25 Albumin 3.6 g/dL (3.0-4.8) 05/01/18 02:25 Globulin 3.2 gm/dL 05/01/18 02:25 Albumin/Globulin Ratio 1.1 (1.1-1.8) 05/01/18 02:25 Triglycerides 110 mg/dL (35-160) 05/01/18 08:00 Cholesterol 158 mg/dL (130-200) 05/01/18 08:00 LDL Cholesterol Direct 80 mg/dL (0-129) 05/01/18 08:00 HDL Cholesterol 33 mg/dL (29-60) 05/01/18 08:00 TSH 3rd Generation 0.89 mIU/mL (0.46-4.68) 05/01/18 10:30 Attending/Attestation - Attestation I have personally seen and examined this patient.: Yes I have fully participated in the care of the patient.: Yes I have reviewed all pertinent clinical information, including history, physical exam and plan: Yes Notes (Text): 05/01/18 16:08 attending note; Patient seen and examined with resident. Patient is alert and awake. Complaining of right-sided/rib musculoskeletal pain. Denies any left sided chest pain, shortness of breath. Denies any abdominal pain, nausea, vomiting. Patient also has PEG feeding. Patient is a 87 year old old female with PMH of HTN, HLD, hypothyroidism, and CVA who presents to [facility] ED brought in by EMS accompanied by daughter complaining of pain in the right chest area. 1. Right-sided chest/rib pain; most likely musculoskeletal in nature. EKG showed no acute ST-T changes. Cardiac enzymes negative. Cardiology evaluation appreciated. Advised to continue Tylenol or NSAIDs as needed. 2. CVA/PEG placement; continue PEG feeding. Patient also takes p.o. diet. Continue aspirin and Pravachol. 3 .hypertension.; Continue lisinopril. 4. Hypothyroid; continue Synthroid PT evaluation appreciated. Discharge home today. Follow-up with PMD Dr. Beyer.
[2018-05-01 15:20] VITALS: O2SAT 100
== END 2018-05-01 16:05 | disposition home or self-care (01) ==
LOC: ED 01:51 → ERH 04:24 → 2RNO 06:11
PROVIDERS: ADMIT Internal Medicine; ATTEND Internal Medicine
DX: R07.89 Other chest pain (principal); I10 Essential (primary) hypertension; N32.81 Overactive bladder; E03.9 Hypothyroidism, unspecified; E78.5 Hyperlipidemia, unspecified; Z86.73 Personal history of transient ischemic attack (TIA), and cerebral infarction without residual deficits; Z93.1 Gastrostomy status; Z96.653 Presence of artificial knee joint, bilateral
CPT/HCPCS: 36415; 71045; 80053; 80061; 82550; 83615; 84443; 84484; 85027; 85610; 85730; 93005; 97161; 97530; G0378; G8978; G8979; G8980; J1650

== ENCOUNTER 2018-06-14 09:00 | Outpatient (CLI) | payer MEDICARE | END 2018-06-14 09:01 | disposition home or self-care (01) | LOC: RAD 09:00 ==